=== PATIENT | female | born 1930 | race Caucasian/White ===

== ENCOUNTER 2016-07-04 12:03 | Emergency (ER) | payer MEDICARE, BC ==
[2016-07-04 12:51] LABS: BASOPHILS 0.4 % (0.0-2.0); EOSINOPHILS 2.6 % (0-7); HEMATOCRIT 42.4 % (36.0-48.0); HEMOGLOBIN 14.4 g/dL (12-16); IMMATURE GRANULOCYTES 0.2 % (0-5); LYMPHOCYTES 35.5 % (15-50); MCH 31.9 pg (26.0-34.0); MEAN PLATELET VOLUME 10.2 fL (7.4-10.4); MONOCYTES 7.5 % (2-11); NEUTROPHILS 53.8 % (40-80); PLATELET COUNT 208 10x3/uL (130-400); RBC 4.51 10x6/uL (4.00-5.40); RDW 13.2 % (11.5-14.5)
[2016-07-04 13:09] LABS: ALBUMIN 3.5 g/dL (3.4-5.0); ALKALINE PHOSPHATASE 68 U/L (46-116); ALT (SGPT) 22 U/L (10-68); CALC OSMOLALITY 277 mosm/kg (275-300); CALCIUM 9.4 mg/dL (8.5-10.1); CARBON DIOXIDE 26.5 mmol/L (21.0-32.0); CHLORIDE - SERUM 105 mmol/L (98-107); CREATININE - SERUM 0.7 mg/dL (0.6-1.3); GLUCOSE 96 mg/dL (74-106); PROTEIN - SERUM 7.1 g/dL (6.4-8.2); SODIUM 140 mmol/L (136-145); UREA NITROGEN 10 mg/dL (7-18); eGFR NON AFRICAN AMERICAN 84 mL/min (90-120)
[2016-07-04 13:46] LABS: CKMB 1.1 U/L (0.0-3.6); CREATINE KINASE 50 UL (21-215); PRO BNP 140 pg/mL (0-450); TROPONIN-I < 0.017 ng/mL (0.000-0.060)
[2016-07-05] MEDS ORDERED: ASCORBIC ACID500 MG PO (12:47)
[2016-07-05] MEDS ORDERED: VITAMIN D2000 UNIT PO (12:47)
[2016-07-05] MEDS ORDERED: LUTEIN20 MG PO (12:48)
[2016-07-05] MEDS ORDERED: BAYER CHEWABLE81 MG PO (12:49)
[2016-07-05 12:50] VITALS: BMI 25.4
[2016-07-05] MEDS ORDERED: PLAVIX75 MG PO (15:34)
--- NOTE | 2016-07-07 08:22 | HP ---
PATIENT: TEETEE WILLIAMSON MEDICAL RECORD: [id number] ACCOUNT: [id number] LOCATION:[place] : 32 ADMISSION DATE: 07/04/16 HISTORY AND PHYSICAL EXAMINATION HISTORY OF PRESENT ILLNESS: An 86-year-old lady with no known history of coronary artery disease. She has a history of vertigo with near syncope, evaluated with 30-day event Holter monitor, admitted today with anginal symptomatology with exercising at [facility] with onset of chest pain, tightness, pressure, plus or minus nausea, no emesis, referred for further evaluation. PAST MEDICAL HISTORY: Include history of osteoarthritis. No other major illnesses. MEDICATIONS: Per Pulse 8. ALLERGIES: None known. SOCIAL HISTORY: Lives here in [place]. She independently takes care of all ADLs. She is a nonsmoker, does exercise. REVIEW OF SYSTEMS: The patient reports easy bruising but reports no swollen glands. The patient reports no fever, no night sweats, no significant weight gain, no significant weight loss. No significant exercise tolerance. The patient reports no dry eyes, no irritation, no vision change. Patient reports no difficulty hearing and no ear pain. Patient reports no frequent nose bleeds or nose and sinus problems. Patient reports on arm pain on exertion. No shortness of breath while lying down. No history of heart murmur. Patient reports no cough, no wheezing or coughing up blood. Patient reports no abdominal pain, no vomiting. Normal appetite. No diarrhea and not vomiting blood. No nausea and no constipation. Patient reports no incontinence. No difficulty urinating. No hematuria. No increased frequency. Patient reports no muscle aches. No weakness, no arthralgias, no back pain. No swelling of the extremities. Patient reports no abnormal mole, no jaundice, no rashes. Reports no loss of consciousness. No weakness and no numbness. No seizures, dizziness, or headaches. The patient reports no depression, no sleep disturbance, feeling safe in a relationship and no alcohol abuse. Patient reports on fatigue. Reports no runny nose or sinus pressure. No itching, no hives, and no frequent sneezing. PHYSICAL EXAMINATION: GENERAL: Pleasant female, in no acute distress. VITAL SIGNS: Blood pressure 116/64, pulse 64 and regular. HEENT: Normocephalic, atraumatic. NECK: No JVD or bruit. HEART: Regular, occasional extrasystole. No gallops. LUNGS: Good air excursion. ABDOMEN: Soft, nontender. EXTREMITIES: Pulse well preserved 2+ with no edema. DIAGNOSTIC DATA: ECG shows normal PACs. IMPRESSION: Probable progressive angina. HISTORY AND PHYSICAL [id number] TEETEE WILLIAMSON PLAN: We will plan for cardiac catheterization. Cardiac enzymes are negative currently. The patient lives close by so we will discharge with this done at a later date. TRANSINT:[id number] Voice Confirmation ID: [id number] DOCUMENT ID: [id number] JOSLYN MACK MD at 0822 CC: [id number] DICTATION DATE: 07/04/16 1448 ALLEY CLEANER: 07/04/16 1623 DEP ER 07/04/16 [place] [address] [place] [address]
== END 2016-07-04 15:55 | disposition home or self-care (01) ==
LOC: D.ER 12:03
PROVIDERS: Emergency Medicine
DX: R07.9 Chest pain, unspecified (principal); G25.81 Restless legs syndrome; I44.0 Atrioventricular block, first degree

== ENCOUNTER 2016-07-05 12:04 | Outpatient (CLI) | payer MEDICARE, BC ==
[~2016-07-05] VITALS: Ht 167.6 cm; Wt 71.4 kg
--- NOTE | ~2016-07-05 | HEMODYNAMI ---
PATIENT:TEETEE WILLIAMSON MEDICAL RECORD: [id number] : 32 LOCATION:DSINTIA ADMISSION DATE: 07/05/16 Generatedon:07/05/201615:23 Patient name: TEETEE WILLIAMSON Patient #: [id number] SSN: DO B: 1930 Date of study: 07/05/2016 Page: Of Hemodynamic Procedure Report Patient Data Patient Demographics Procedure consent was obtained First Name: TEETEE Gender: Female Last Name: TERI : 1930 [facility] Initial: R Age: 86 year(s) Patient #: [id number] Race: Unknown Additional ID: [id number] Contact details Address: [address] [place] [address] [facility] State: [place] City: [facility] Zip code: [address] Admission Admission Data Admission Date: 07/05/2016 Admission Time: 12:04 Procedure Procedure Types Cath Procedure Diagnostic Procedure LHC LHC w/Coronaries PCI Procedure Coronary Stent Initial Miscellaneous Procedures Moderate Sedation up to 30 minutes Procedure Description Procedure Date Procedure Date: 07/05/2016 Procedure Start Time: 14:53 Procedure End Time: 15:21 Procedure Staff Name Function Steve Rivero RT Monitor Umair Sanchez RT Scrub Bola Mckinney MD Performing Physician Oneyda Zavala RN Nurse Mary Buchanan RT Monitor Procedure Data Cath Procedure Fluoroscopy Diagnostic fluoroscopy Total fluoroscopy Time: 4.7 time: 4.7 min min Diagnostic fluoroscopy Total fluoroscopy dose: 625 dose: 625 mGy mGy Contrast Material Contrast Material Type Amount (ml) Isovue 300 105 Entry Location Entry Primary Successful Side Size Upsize Upsize Entry Closure Olmos ccessful Closure Location (Fr) 1 (Fr) 2 (Fr) Remarks Device Remarks Radial Right 6 Fr Mechanical artery Short Compression Estimated blood loss: 10 ml Diagnostic catheters Device Type Used For End Catheter Placement Terumo 5Fr [place] 110cm LV Angiography catheter Terumo 5Fr [place] 110cm Left Coronary catheter Angiography Terumo 5Fr [place] 110cm Right Coronary catheter Angiography Procedure Complications No complications Procedure Medications Medication Administration Route Dosage Oxygen NC 2 l/min Heparin Flush Bag added to field 2 bags (1000units/500ml NS) Lidocaine 2% added to field 20 Radial Cocktail added to field 1 syringe (Verapomil 2mg/Nitro 400mcg/Heparin 1500units) Versed I.V. 0.5 mg Fentanyl I.V. 50 mcg Versed I.V. 0.5 mg Fentanyl I.V. 50 mcg Versed I.V. 0.5 mg Radial Cocktail I.A. 1 syringe (Verapomil 2mg/Nitro 400mcg/Heparin 1500units) Heparin Bolus I.V. 4000 units Integrilin (Bolus I.V. 6.2 ml 2mg/ml) Plavix P.O. 600 mg Hemodynamics Rest Heart Rate: 74 (bpm) Pressure Samples Time Site Value (mmHg) Purpose Heart Use Rate(bpm) 14:56 LV 85/7,85 EDP 72 Gradients Valve Time Site Site Mean SEP/DFP Peak To Heart Use 1 2 (mmHg) (sec/min) Peak Rate (mmHg) (bpm) Aortic 14:57 LV AO 80 Snapshots Pre Cath Intra NCS Post Cath Vital Signs Time Heart Resp SPO2 NIBP (mmHg) Rhythm Pain Sedation Rate (ipm) (%) Status Level (bpm) 14:43:57 72 16 98 152/95(121) NSR 0 (11) 10(A) , No pain 14:48:01 64 16 97 127/68(109) NSR 0 (11) 10(A) , No pain 14:52:11 67 16 96 121/71(113) NSR 0 (11) 10(A) , No pain 14:56:27 88 16 98 103/45(72) NSR 0 (11) 9(A) , No pain 15:00:37 66 16 96 104/42(73) NSR 0 (11) 9(A) , No pain 15:04:43 76 16 96 96/54(79) NSR 0 (11) 9(A) , No pain 15:09:31 76 16 95 119/71(99) NSR 0 (11) 10(A) , No pain 15:13:42 68 16 94 111/62(99) NSR 0 (11) 10(A) , No pain 15:17:51 64 16 94 109/55(77) NSR 0 (11) 10(A) , No pain Medications Time Medication Route Dose Verified Delivered Reason Note s Effectiveness by by 14:44:22 Oxygen NC 2 l/min Bola Oneyda Per physician St. Randy Zavala RN, MD 14:44:30 Heparin Flush added 2 bags Bola Bola used for Bag to [place] procedure (1000units/500ml field MD ZAVALA NS) 14:44:37 Lidocaine 2% added 20ml Bola Aranaory used for to vial [place] procedure field MD ZAVALA 14:44:55 Radial Cocktail added 1 Bola Bola used for (Verapomil to syringe [place] procedure 2mg/Nitro field MD ZAVALA 400mcg/Hepari 14:51:20 Versed I.V. 0.5 mg Bola Oneyda for sedation St. Randy Zavala RN, MD 14:51:28 Fentanyl I.V. 50 mcg Bola Oneyda for sedation St. Randy Zavala RN, MD 14:53:40 Versed I.V. 0.5 mg Bola Oneyda for sedation St. Randy Zavala RN, MD 14:53:44 Fentanyl I.V. 50 mcg Bola Oneyda for sedation St. Randy Zavala RN, MD 14:55:17 Versed I.V. 0.5 mg Bola Oneyda for sedation St. Randy Zavala RN, MD 14:55:23 Radial Cocktail I.A. 1 Bola Bola for (Verapomil syringe [place] vasodilation 2mg/Nitro MD ZAVALA 400mcg/Hepari 15:01:51 Heparin Bolus I.V. 4000 Bola Oneyda for dose units St. Randy Zavala RN anticoagulation verified MD sandra horne 15:04:11 Integrilin I.V. 6.2 ml Bola Oneyda for 3.8 ML (Bolus 2mg/ml) St. Randy Zavala RN antiplatelet wasted MD therapy 15:11:54 Plavix P.O. 600 mg Bola Oneyda for St. Randy Zavala RN antiplatelet MD therapy Procedure Log Time Note 14:15:30 Umair Sanchez RT(R) sent for patient. Start room use. 14:29:31 Time tracking: Regular hours 14:29:36 Plan of Care:Hemodynamics will remain stable., Cardiac rhythm will remain stable., Comfort level will be maintained., Respiratory function will remain adequate., Patient/ family verbilizes understanding of procedure., Procedure tolerated without complication., Recovers from procedure without complications.. 14:32:49 Patient received from Pre/Post Procedure Room to CCL 2 Alert and oriented. Tansferred to table in Supine position. 14:32:50 Correct patient and procedure confirmed by team. 14:32:50 Warm blankets applied, and blair hugger turned on for patient comfort. 14:32:51 Signed procedure consent form obtained from patient. 14:32:52 ECG and BP/O2 sat monitors applied to patient. 14:42:55 Vital chart was started 14:44:22 Oxygen 2 l/min NC was administered by Oneyda Zavala RN; Per physician; 14:44:30 Heparin Flush Bag (1000units/500ml NS) 2 bags added to field was administered by Bola Mckinney MD; used for procedure; 14:44:37 Lidocaine 2% 20ml vial added to field was administered by Bola Mckinney MD; used for procedure; 14:44:55 Radial Cocktail (Verapomil 2mg/Nitro 400mcg/Heparin 1500units) 1 syringe added to field was administered by Bola Mckinney MD; used for procedure; 14:48:33 Rhythm: sinus rhythm 14:48:35 Full Disclosure recording started 14:49:01 H&P Date Dictated: 07/04/2016 Within 30 days and on chart., H&P Addendum completed by physician on day of procedure. (MUST COMPLETE FOR ALL OUTPATIENTS). 14:49:02 Pre-op teaching completed and patient verbalized understanding. 14:49:02 Pre-procedure instructions explained to patient. 14:49:04 Family in waiting room. 14:49:06 Patient NPO since Midnight. 14:49:08 Is the patient allergic to Iodine/contrast media? No. 14:49:14 Is patient on blood thinner?No 14:49:17 Patient diabetic? No. 14:49:19 Patient not . Patient is over age 55. 14:49:21 Previous problem with sedation/anesthesia? No ? 14:49:23 Snore? No 14:49:24 Sleep apnea? No 14:49:26 Opens mouth fully? Yes 14:49:26 Deviated septum? No 14:49:27 Sticks out tongue? Yes 14:49:29 Airway obstruction? No ? 14:49:30 Dentures? No ? 14:49:34 Pre procedure: right dorsailis pedis pulse 1+ Palpable, but thready & weak; easily obliterated 14:49:39 Modified Chris's test Ulnar < 7 seconds 14:49:42 Patient pain scale 0/10 ?. 14:49:48 IV patent on arrival in left forearm with 0.9% NaCl at [facility]. 14:49:50 Lab results completed and on chart. 14:49:52 Right Radial & Right Groin area was prepped with chlora-prep and draped in sterile fashion 14:49:54 Sharps counted by scrub and verified by R.N. 14:49:54 Alarms reviewed by R. N. 14:49:58 Use device set Radial Dx 14:49:59 Tegaderm 4 x 4 opened to sterile field. 14:50:00 Acist Manifold opened to sterile field. 14:50:01 Acist Hand Control opened to sterile field. 14:50:02 Medline Cath Pack opened to sterile field. 14:50:02 Acist Syringe opened to sterile field. 14:50:03 St [place]alo 260cm J .035 wire opened to sterile field. 14:50:03 Terumo 6Fr Slender Glidesheath opened to sterile field. 14:50:03 Bag Decanter opened to sterile field. 14:50:04 MBrace Wrist Support opened to sterile field. 14:50:08 --------ALL STOP TIME OUT------ 14:50:09 Final Timeout: patient, procedure, and site verified with staff and physician. All members of the team are in agreement. 14:50:13 Right Radial & Right Groin site verified by team. 14:50:15 Physical assessment completed. ASA score P 2 - A patient with mild systemic disease as per Bola Mckinney MD. 14:50:18 Sedation plan: IV Moderate Sedation Versed, Fentanyl 14:51:20 Versed 0.5 mg I.V. was administered by Oneyda Zavala RN; for sedation; 14:51:28 Fentanyl 50 mcg I.V. was administered by Oneyda Zavala RN; for sedation; 14:52:38 Steve Rivero RT(R) was relieved by Mary Buchanan RT(R) as monitoring person 14:52:50 Procedure started. 14:52:53 Baseline sample Acquired. 14:53:13 Local anesthetic to right radial artery with Lidocaine 2% by Bola Mckinney MD.INITIAL ACCESS ONLY 14:53:40 Versed 0.5 mg I.V. was administered by Oneyda Zavala RN; for sedation; 14:53:44 Fentanyl 50 mcg I.V. was administered by Oneyda Zavala RN; for sedation; 14:54:15 A 6 Fr Short sheath was inserted into the Right Radial artery 14:54:31 Zero performed for pressure channel P1 14:55:14 A Terumo 5Fr [place] 110cm catheter was advanced over the wire and used for LV Angiography. 14:55:17 Versed 0.5 mg I.V. was administered by Oneyda Zavala RN; for sedation; 14:55:23 Radial Cocktail (Verapomil 2mg/Nitro 400mcg/Heparin 1500units) 1 syringe I.A. was administered by Bola Mckinney MD; for vasodilation; 14:56:00 Injector settings: Ml/sec: 5, Volume: 15, 14:56:02 LV gram done using SHANNON 14:56:03 LV hemodynamics recorded. 14:56:48 EF : 60 % 14:57:39 A Terumo 5Fr [place] 110cm catheter was advanced over the wire and used for Left Coronary Angiography. 14:59:15 A Terumo 5Fr [place] 110cm catheter was advanced over the wire and used for Right Coronary Angiography. 14:59:21 Catheter removed. 14:59:32 [employer] BasixCompak Inflation Kit opened to sterile field. 14:59:33 Alloy Digitaltronic Launcher 6Fr HS I SH guide catheter opened to sterile field. 14:59:39 Lorenz [place] 300cm 0.014 guide wire opened to sterile field. 15:01:21 6 Fr HSI SH guide catheter was inserted over the wire 15:01:51 Heparin Bolus 4000 units I.V. was administered by Oneyda Zavala RN; for anticoagulation; dose verified wtgeovany horne 15:03:02 [place] wire advanced. 15:04:11 Integrilin (Bolus 2mg/ml) 6.2 ml I.V. was administered by Oneyda Zavala RN; for antiplatelet therapy; 3.8 ML wasted 15:04:56 Inflation Number: 1 A Medtronic Integrity 2.5 x 14 stent was prepped and advanced across the Mid RCA. The stent was deployed at 12 AMRIT for 0:31 (min:sec). 15:05:09 Stent catheter was removed intact over wire. 15:08:35 Inflation Number: 1 A Medtronic Integrity 2.5 x 14 stent was prepped and advanced across the Prox RCA. The stent was deployed at 14 AMRIT for 0:35 (min:sec). 15:08:51 Stent catheter was removed intact over wire. 15:09:05 Balloon removed over the wire. 15:09:06 Guide catheter removed. 15:09:06 Wire removed. 15:09:16 Terumo TR Band Standard opened to sterile field. 15:09:29 Sheath removed intact; hemostasis achieved with Mechanical Compression to the Right Radial artery. 15:09:32 Procedure ended.(Physican Out) 15:09:47 Fluoroscopy time 04.70 minutes. 15:09:50 Fluoroscopy dose: 625 mGy 15:09:50 Flurop Dose total: 625 15:09:54 Contrast amount:Isovue 300 105ml. 15:09:55 Sharps counted by scrub and verified by R.N. 15:09:57 TR band inflated with 12cc of air. 15:09:58 Insertion/operative site no bleeding no hematoma. 15:10:38 Post right radial artery:stable, clean and dry 15:10:40 Post Procedure Pulses reassessed and unchanged 15:10:53 Post-procedure physical assessment completed. ASA score P 2 - A patient with mild systemic disease as per Bola Mckinney MD. 15:10:55 Post procedure rhythm: unchanged. 15:10:59 Estimated blood loss: 10 ml 15:11:01 Post procedure instruction explained to patient.Patient verbalizes understanding. 15:11:02 Patient needs reinforcement of post procedure teaching. 15:11:28 Procedure type changed to Cath procedure, Diagnostic procedure, LHC, LHC w/Coronaries, PCI procedure, Coronary Stent Initial, Miscellaneous Procedures, Moderate Sedation up to 30 minutes 15:11:43 Procedure Complication : No complications 15:11:46 See physician's report for complete and final results. 15:11:54 Plavix 600 mg P.O. was administered by Oneyda Zavala RN; for antiplatelet therapy; 15:14:01 Procedure and supply charges have been captured, reviewed, submitted and are correct. 15:20:33 Vital chart was stopped 15:20:44 Report given to Pre/Post Procedure Room. 15:20:47 Patient transfered to Pre/Post Procedure Room with Stretcher. 15:21:11 Full Disclosure recording stopped 15:21:11 Procedure ended. 15:21:18 End room use (Document Last) Intervention Summary Intervention Notes Time ActionType Lesion and Equipment Action# Pressure Duration Attributes Used 15:04:56 Place stent Mid RCA Medtronic 1 12 00:31 Integrity 2.5 x 14 stent 15:08:35 Place stent Prox RCA Medtronic 1 14 00:36 Integrity 2.5 x 14 stent Device Usage Item Name Manufacture Quantity Catalog Hospital Part Current Minimal Lot# / Number Charge Number Stock Stock Serial# Code Tegade 4 3M 1 [id number] [id number] 501140 5 x 4 Acist Acist 1 08252 045289 912802 141228 5 Manifold Medical Systems Inc Acist Hand Acist 1 48516 081366 812738 418445 5 Control Medical Systems Inc Acist Acist 1 16926 625152 206435 040766 20 Syringe Medical Systems Inc Medline Cardinal 1 [id number] 134115 69864 913853 5 Cath Pack Health Bag Microtek 1 2002S 899131 43628 714520 5 [employer] Inc. Terumo 6Fr Terumo 1 [id number] 353837 134056 505897 [address] St Gonzalo 1 559364 272461 930211 256367 30 260cm J .035 wire MBrace Advanced 1 140-0250-00 702896 89128 559985 5 Wrist Vascular Support Dynamics Terumo 5Fr Terumo 1 36-9710 453594 026540 698274 5 [place] 110cm catheter Merit Merit 1 CX7566 513496 037827 120648 15 BasixNatureWorks Medical Inflation Kit Medtronic Medtronic 1 [id number] 084863 00502 970052 1 Launcher 6Fr HS I SH guide catheter Lorenz vivit 1 [id number] 719483 854443 281803 1 [place] [facility] 300cm 0.014 guide wire Medtronic Medtronic 2 [id number] 410836 133941 5 [id number] [facility] [id number] 2.5 x 14 stent Terumo TR Terumo 1 [id number] 924848 377352 930883 40 Band Standard Signature Audit [place] Stage Time Signature Unsigned Intra-Procedure 07/05/2016 Mary 3:23:14 PM Counts RT(R) Signatures Monitor : Steve Rivero RT Signature : Date : Time : Monitor : Mary Signature : Counts RT Date : Time : [address] [place] [address]
[2016-07-05] MEDS ORDERED: VITAMIN D2000 UNIT PO (12:47)
[2016-07-05] MEDS ORDERED: ASCORBIC ACID500 MG PO (12:47)
[2016-07-05] MEDS ORDERED: LUTEIN20 MG PO (12:48)
[2016-07-05] MEDS ORDERED: BAYER CHEWABLE81 MG PO (12:49)
[2016-07-05 12:50] VITALS: BP 152/61; Ht 167.6 cm; Wt 71.4 kg
[2016-07-05 13:05] LABS: BASOPHILS 0.7 % (0.0-2.0); EOSINOPHILS 3.4 % (0-7); HEMATOCRIT 40.3 % (36.0-48.0); HEMOGLOBIN 13.5 g/dL (12-16); LYMPHOCYTES 39.4 % (15-50); MCH 31.7 pg (26.0-34.0); MCHC 33.5 g/dL (31.0-37.0); MCV 94.6 fL (80.0-100.0); MEAN PLATELET VOLUME 10.3 fL (7.4-10.4); MONOCYTES 10.5 % (2-11); PLATELET COUNT 207 10x3/uL (130-400); RBC 4.26 10x6/uL (4.00-5.40); RDW 13.1 % (11.5-14.5); WBC 4.4 10x3/uL (4.8-10.8)
[2016-07-05 13:20] LABS: CREATININE - SERUM 0.8 mg/dL (0.6-1.3)
[2016-07-05] MEDS ORDERED: PLAVIX75 MG PO (15:34)
--- NOTE | 2016-07-05 15:48 | NUR ---
RESTING QUIETLY WITH VSS TR BAND TO R/WRIST CDI NO BLEEDING NO HEMATOMA NOTED. WILL MONITOR
--- NOTE | 2016-07-05 16:18 | NUR ---
9475 NO DISTRESS VSS WITH PATIENT RESTING QUIELTY WITH EYES CLOSED. TR BAND TO R/WRIST CDI NO BLEEDING NO HEMATOMA NOTED
--- NOTE | 2016-07-05 16:29 | NUR ---
BED DE LA TORRE PROVIDED WITH PATIENT VOIDING 300 CC CLEAR YELLOW URINE
--- NOTE | 2016-07-05 17:47 | NUR ---
3 CC AIR REMOVED FROM TR BAND WITH NO BLEEDING NOTED
--- NOTE | 2016-07-05 18:17 | NUR ---
PIV REMOVED FROM LEFT HAND WITH DRESSING APPLIED. PATIENT UP TO AMBULATE TO BATHROOM NO DISTRESS NO CHEST PAIN BACK TO ROOM WITH 2 CC AIR REMOVED FROM TR BAND NO BLEEDING NOTED
--- NOTE | 2016-07-05 18:38 | NUR ---
TR BAND WITH NO BLEEDING NO HEMATOMA NOTED VERBAL AND WRITTEN DISCHARGE GONE OVER WITH PATIENT AND FAMILY LEFT VIA WC TO PARKING FOR TRANSPORT HOME
--- NOTE | 2016-07-07 08:22 | OP ---
PATIENT NAME: TEETEE WILLIAMSON MEDICAL RECORD: [id number] :32 LOCATION:D.CAT ADMISSION DATE: SURGEON: JOSLYN MACK MD DATE OF OPERATION: 07/05/2016 PROCEDURE: Left heart catheterization, selective coronary angiography, right radial approach. CATHETERS: [place] catheter, radial sheath. The procedure was well tolerated. We proceeded immediately to PTCA stenting in the right. FINDINGS: Left ventriculography in 30-degree SHANNON view: Normal wall motion and normal systolic function. CORONARY ANATOMY: LEFT MAIN: The left main is free of disease. LAD: Has minimal luminal irregularities, otherwise no flow obstructive disease. CIRCUMFLEX: Circumflex has minimal luminal irregularities, no flow obstructive disease. RIGHT CORONARY ARTERY: Has 2 sequential stenoses, mid portion 78%, but more proximal, 80%. PLAN: Intervention momentarily. DESCRIPTION: Using an indwelling sheath, a hockey stick guide catheter was applied with excellent guide catheter support followed by a 300 cm [place] XT wire was placed across both lesions in the right. Stents were placed in the following fashion: midportion was covered with a 2.5 x 14 mm Integrity stent up to 12 atmospheres, more proximally 80% stenosis up to 2.5 x 14 mm Integrity nondrug-eluting stent to 14 atmospheres. Final ____ shows excellent resolution, no significant residual. GINA flow was 3 throughout the procedure. Integrilin was used in the case. Plavix was loaded in the lab. Sheath was closed with TR band. TRANSINT:[id number] Voice Confirmation ID: [id number] DOCUMENT ID: [id number] JOSLYN MACK MD at 0822 CC: [id number] DICTATION DATE: 07/05/16 1516 CYTOMETRY TECHNOLOGIST: 07/05/16 2326 DEP CLI 07/05/16 [place] [address]
== END 2016-07-05 18:40 | disposition home or self-care (01) ==
LOC: D.CATH 12:04
PROVIDERS: Internal Medicine Interventional Cardiology
DX: I20.9 Angina pectoris, unspecified (principal); R55 Syncope and collapse

== ENCOUNTER → 2017-11-07 10:40 | Outpatient (CLI) | payer MEDICARE, BC ==
[2016-07-05 12:50] VITALS: BMI 25.4
[~2017-11-07 10:40] MED LIST: ASCORBIC ACID500 MG PO; BAYER CHEWABLE81 MG PO; LUTEIN20 MG PO; PLAVIX75 MG PO; VITAMIN D2000 UNIT PO
== END | disposition home or self-care (01) ==
LOC: D.RAD 10:40
DX: R06.02 Shortness of breath (principal)

== ENCOUNTER 2019-01-11 09:07 | Observation (INO) | payer MEDICARE, BC ==
[~2019-01-11] VITALS: Ht 167.6 cm; Wt 59.9 kg
--- NOTE | ~2019-01-11 | HEMODYNAMI ---
PATIENT:TEETEE WILLIAMSON MEDICAL RECORD: [id number] : 32 LOCATION:[address] ADMISSION DATE: 01/11/19 Generatedon:01/12/201912:08 Patient name: TEETEE WILLIAMSON Patient #: [id number] SSN: DO B: 1930 Date of study: 01/12/2019 Page: Of Hemodynamic Procedure Report Patient Data Patient Demographics Procedure consent was obtained First Name: TEETEE Gender: Female Last Name: TERI : 1930 [facility] Initial: R Age: 88 year(s) Patient #: [id number] Race: Additional ID: [id number] Contact details Address: [address] [place] [address] State: [place] City: [facility] Zip code: [address] Past Medical History Allergies Allergen Reaction Date Comments Reported Sulfa drugs 01/12/2019 Admission Admission Data Admission Date: 01/11/2019 Admission Time: 10:18 Room #: [facility] Lab Results Lab Result Date: 01/12/2019 Lab Result Time: 0:00 Biochemistry Name Units Result Min Max BUN mg/dl 13 --(--*-)-- 7 18 Creatinine mg/dl 0.8 --(-*--)-- 0.6 1.3 eGFR ml/min 72 *-(----)-- 90 120 NONAFRICAN CBC Name Units Result Min Max Hematocrit % 41.3 -*(----)-- 42 54 Hemoglobin g/dl 14 --(*---)-- 13.5 17.5 Procedure Procedure Types Cath Procedure Diagnostic Procedure C [facility] w/Coronaries Procedure Description Procedure Date Procedure Date: 01/12/2019 Procedure Start Time: 11:56 Procedure End Time: 12:06 Procedure Staff Name Function Bola House MD Performing Physician Evita Rossi RT Monitor Anabella Hopson RT Scrub Erasmo Blunt RN Nurse Steve Rivero RT Latin Dancer Procedure Data Cath Procedure Fluoroscopy Diagnostic fluoroscopy Total fluoroscopy Time: 1.7 time: 1.7 min min Diagnostic fluoroscopy Total fluoroscopy dose: 167 dose: 167 mGy mGy Contrast Material Contrast Material Type Amount (ml) Isovue 300 55 Entry Location Entry Primary Successful Side Size Upsize Upsize Entry Closure Succes sful Closure Location (Fr) 1 (Fr) 2 (Fr) Remarks Device Remarks Femoral Right 5 Fr Exoseal artery Estimated blood loss: 0 ml Diagnostic catheters Device Type Used For End Catheter Placement MULTIPACK JL 4.0 5Fr Procedure catheter MULTIPACK 3DRC 5Fr Procedure catheter MULTIPACK Pigtail 5 Fr Procedure catheter Procedure Complications No complications Procedure Medications Medication Administration Route Dosage Oxygen etCO2 Nasal cannula 2 l/min Lidocaine 2% added to field 20 Heparin Flush Bag added to field 2 bags (1000units/500ml NS) 0.9% NaCl I.V. 100 ml/hr Versed I.V. 1 mg Versed I.V. 1 mg Fentanyl I.V. 50 mcg Fentanyl I.V. 50 mcg Hemodynamics Rest HGB: 14 (g/dl) Heart Rate: 60 (bpm) Pressure Samples Time Site Value (mmHg) Purpose Heart Use Rate(bpm) 12:01 LV 113/3,9 Snapshot 64 Gradients Valve Time Site Site Mean SEP/DFP Peak To Heart Use 1 2 (mmHg) (sec/min) Peak Rate (mmHg) (bpm) Aortic 12:01 LV AO 65 Snapshots Pre Cath Intra NCS Post Cath Vital Signs Time Heart Resp SPO2 etCO2 NIBP Rhythm Pain Sedation Rate (ipm) (%) (mmHg) (mmHg) Status Level (bpm) 11:48:42 62 13 97 40.5 123/58(73) NSR 0 (11) 10(A) , No pain 11:53:00 58 13 94 44.2 101/53(70) NSR 0 (11) 10(A) , No pain 11:57:08 60 12 93 45 104/56(82) NSR 0 (11) 9(A) , No pain 12:01:19 66 12 96 31.5 107/51(86) NSR 0 (11) 9(A) , No pain 12:04:59 65 13 96 32.3 108/58(83) NSR 0 (11) 10(A) , No pain Medications Time Medication Route Dose Verified Delivered Reason Notes Eff ectiveness by by 11:48:47 Oxygen etCO2 2 Bola Kennyie used for Nasal l/min St Randy Blunt chef kitchen manager cannula 11:48:57 Lidocaine 2% added 20ml Bola Bola for local to vial [facility] anesthetic field MD ZAVALA 11:49:04 Heparin Flush added 2 Bola Bola used for Bag to bags [facility] procedure (1000units/500ml field MD ZAVALA NS) 11:49:12 0.9% NaCl I.V. 100 Bola Kennyie Per ml/hr St Randy Blunt RN physician 11:55:01 Versed I.V. 1 mg Bola Buffie for HarshRandy Blunt RN sedation 11:55:08 Fentanyl I.V. 50 Bola Buffie for mcg HarshRandy Blunt RN sedation 11:59:02 Versed I.V. 1 mg Bola Buffie for HarshRandy Blunt RN sedation 11:59:08 Fentanyl I.V. 50 Bola Buffie for mcg Harsh Merlene RN sedation MD Procedure Log Time Note 11:23:18 Informed consent obtained and on chart 11:23:43 Procedure Status Urgent Heart Cath (IP). 11:23:46 Steve Rivero RT(R) sent for patient. Start room use. 11:23:47 Time tracking: Call back (After hours or weekends) 11:23:51 Plan of Care:Hemodynamics will remain stable., Cardiac rhythm will remain stable., Comfort level will be maintained., Respiratory function will remain adequate., Patient/ family verbilizes understanding of procedure., Procedure tolerated without complication., Recovers from procedure without complications.. 11:34:04 Patient received from Pre/Post Procedure Room to CCL 1 Alert and oriented. Tansferred to table in Supine position. 11:34:05 Warm blankets applied, and blair hugger turned on for patient comfort. 11:34:06 Correct patient and procedure confirmed by team. 11:34:07 ECG and BP/O2 sat monitors applied to patient. 11:34:11 H&P Date Dictated: 01/12/2019 Within 30 days and on chart.. 11:34:22 Patient allergic to Sulfa drugs 11:47:32 Baseline sample Acquired. 11:47:32 Vital chart was started 11:47:35 Rhythm: sinus bradycardia 11:47:37 Full Disclosure recording started 11:47:39 Pre-procedure instructions explained to patient. 11:47:39 Pre-op teaching completed and patient verbalized understanding. 11:47:40 Family in patients room. 11:47:42 Patient NPO since Midnight. 11:47:44 Is patient on blood thinner?No 11:47:46 Patient diabetic? No. 11:47:48 Patient not . Patient is over age 55. 11:47:50 Previous problem with sedation/anesthesia? No ? 11:47:53 Snore? No 11:47:54 Sleep apnea? No 11:47:55 Deviated septum? No 11:47:55 Opens mouth fully? Yes 11:47:56 Sticks out tongue? Yes 11:47:58 Airway obstruction? No ? 11:48:00 Dentures? No ? 11:48:04 Pre procedure: right dorsailis pedis pulse 1+ Palpable, but thready & weak; easily obliterated 11:48:06 Patient pain scale 0/10 ?. 11:48:12 IV patent on arrival in right wrist with 0.9% NaCl at [facility]. 11:48:45 Lab Result : BUN 13 mg/dl 11:48:45 Lab Result : Creatinine 0.8 mg/dl 11:48:45 Lab Result : eGFR NONAFRICAN 72 ml/min 11:48:45 Lab Result : Hemoglobin 14 g/dl 11:48:45 Lab Result : Hematocrit 41.3 % 11:48:47 Oxygen 2 l/min etCO2 Nasal cannula was administered by Erasmo Blunt RN; used for procedure; Verbal order read back and verified. 11:48:48 Lab results completed and on chart. 11:48:56 Right groin area was prepped with chlora-prep and draped in sterile fashion 11:48:57 Lidocaine 2% 20ml vial added to field was administered by Bola House MD; for local anesthetic; Verbal order read back and verified. 11:48:57 Alarms reviewed by R. N. 11:48:57 Sharps counted by scrub and verified by R.N. 11:49:04 Heparin Flush Bag (1000units/500ml NS) 2 bags added to field was administered by Bola House MD; used for procedure; Verbal order read back and verified. 11:49:12 0.9% NaCl 100 ml/hr I.V. was administered by Erasmo Blunt RN; Per physician; Verbal order read back and verified. 11:52:34 Risk of Mortality: .5 11:52:42 Risk of blood transfusion: .8 11:52:56 Risk of GABRIEL: 2 11:54:29 --------ALL STOP TIME OUT------ 11:54:30 Final Timeout: patient, procedure, and site verified with staff and physician. All members of the team are in agreement. 11:54:33 Right groin site verified by team. 11:54:37 Fire Safety Assessment: A--An alcohol-based skin anteseptic being used preoperatively., C--Open oxygen or nitrous oxide is being used., D--An ESU, laser, or fiber-optic light is being used. 11:54:56 Physical assessment completed. ASA score P 2 - A patient with mild systemic disease as per Bola House MD. 11:54:59 2) 60-89 Mildly reduced kidney function, and other findings (as for stage 1) point to kidney disease. 11:55:01 Versed 1 mg I.V. was administered by Erasmo Blunt RN; for sedation; Verbal order read back and verified. 11:55:02 Maximum allowable contrast dose (3.7 X eGFR X 0.75)200 ml. 11:55:05 Sedation plan: IV Moderate Sedation Medication:Versed, Fentanyl 11:55:08 Fentanyl 50 mcg I.V. was administered by Erasmo Blunt RN; for sedation; Verbal order read back and verified. 11:55:19 Zero performed for pressure channel P1 11:56:02 Procedure started. 11:56:09 Local anesthetic to right femoral artery with Lidocaine 2% by Bola House MD.INITIAL ACCESS ONLY 11:57:03 Use device set Femoral Dx 11:57:04 ACIST Syringe (60553) opened to sterile field. 11:57:05 Bag Decanter (2002) opened to sterile field. 11:57:06 ACIST Hand Control (17783) opened to sterile field. 11:57:06 ACIST Manifold (30375) opened to sterile field. 11:57:07 Tegaderm 4 x 4 (1626W) opened to sterile field. 11:57:08 Medline Cath Pack ([id number]) opened to sterile field. 11:57:09 DIAGNOSTIC Multipack 5Fr catheter set (WB7514) opened to sterile field. 11:57:10 SHEATH 5FR [place] (WAH360) opened to sterile field. 11:57:11 EMERALD Guide Wire (312-788) opened to sterile field. 11:57:22 A 5 Fr sheath was inserted into the Right Femoral artery 11:57:29 A MULTIPACK JL 4.0 5Fr catheter was advanced over the wire and used for Procedure. 11:58:31 LCA angiography performed. 11:58:41 Catheter removed. 11:58:51 A MULTIPACK 3DRC 5Fr catheter was advanced over the wire and used for Procedure. 11:59:02 Versed 1 mg I.V. was administered by Erasmo Blunt RN; for sedation; Verbal order read back and verified. 11:59:08 Fentanyl 50 mcg I.V. was administered by Erasmo Blunt RN; for sedation; Verbal order read back and verified. 12:00:02 RCA angiography performed. 12:00:05 Catheter removed. 12:00:17 A MULTIPACK Pigtail 5 Fr catheter was advanced over the wire and used for Procedure. 12:00:31 LV gram done using SHANNON 12:00:33 Injector settings: Ml/sec: 10, Volume: 20, 12:01:29 LV hemodynamics recorded. 12:01:39 EF : 55 % 12:01:41 Catheter removed. 12:01:48 EXOSEAL 5Fr (EX500) opened to sterile field. 12:02:19 Sheath removed intact; hemostasis achieved with Exoseal to the Right Femoral artery. 12:02:28 Procedure ended.(Physican Out) 12:02:44 Contrast amount:Isovue 300 55ml. 12:02:49 Fluoroscopy time 01.70 minutes. 12:02:57 Fluoroscopy dose: 167 mGy 12:02:57 Flurop Dose total: 167 12:03:02 Dose Area Product 9800 mGy/cm. 12:03:04 Sharps counted by scrub and verified by R.N. 12:03:07 Post-op/insertion site Right Femoral artery dressed using a 4 x 4 and Tegaderm. 12:03:11 Post-procedure physical assessment completed. ASA score P 2 - A patient with mild systemic disease as per Bola House MD. 12:03:14 Post procedure rhythm: sinus rhythm 12:03:22 Estimated blood loss: 0 ml 12:03:24 Post procedure instruction explained to patient.Patient verbalizes understanding. 12:03:24 Patient needs reinforcement of post procedure teaching. 12:03:49 Procedure and supply charges have been captured, reviewed, submitted and are correct. 12:03:51 Procedure Complication : No complications 12:06:30 Vital chart was stopped 12:06:32 [facility] Findings: mild to moderate CAD (<70%) 12:06:35 Operative report dictated upon procedure completion. 12:06:36 See physician's report for complete and final results. 12:06:38 Report given to [facility]. 12:06:41 Patient transfered to [facility] with Bed. 12:06:43 Procedure ended. 12:06:43 Full Disclosure recording stopped 12:06:48 End room use (Document Last) 12:07:21 End room use (Document Last) 12:07:42 End room use (Document Last) Device Usage Item Name Manufacture Quantity Catalog Hospital Part Current Minimal L ot# / Number Charge Number Stock Stock Serial# Code ACIST Acist 1 76905 406172 340221 735617 20 Syringe Medical (66068) Systems Inc Bag Microtek 1 2001S 292610 71645 979422 5 Decanter Medical Inc. () ACIST Hand Acist 1 48410 517098 265931 878004 5 Control Medical (33890) Systems Inc ACIST Acist 1 77729 600399 663668 912371 5 Manifold Medical (27043) Systems Inc Tegaderm 4 3M 1 1626W 312193 019603 177879 5 x 4 (1626W) Medline Medline 1 [id number] 472469 02161 456677 5 Cath Pack ([id number]) DIAGNOSTIC Cardinal 1 HR4340 774576 56923 895286 30 Multipack Health 5Fr catheter set (XW8981) SHEATH 5FR Terumo 1 CTP169 896634 249914 865071 5 [place] (YLE041) EMERALD Cardinal 1 502-455 545060 016442 969068 5 Guide Wire Health (502-455) MULTIPACK Cardinal 1 698608 5 JL 4.0 5Fr Health catheter MULTIPACK Cardinal 1 343142 5 3DRC 5Fr Health catheter MULTIPACK Cardinal 1 767036 5 Pigtail 5 Health Fr catheter EXOSEAL 5Fr Cardinal 1 EX500 391685 488559 183257 10 (EX500) Health Signature Audit [place] Stage Time Signature Unsigned Intra-Procedure 01/12/2019 Evita Rossi 12:07:22 PM RT(R) Intra-Procedure 01/12/2019 Erasmo Blunt RN 12:07:42 PM Intra-Procedure 01/12/2019 Bola Brown 12:08:14 PM Randy ZAVALA [facility] [address] [id number]
[2019-01-11] MEDS ORDERED: LUTEIN20 MG PO (09:21)
[2019-01-11] MEDS ORDERED: KLONOPIN0.5 MG PO (09:22)
[2019-01-11] MEDS ORDERED: TIGAN300 MG PO (09:23)
[2019-01-11 09:33] LABS: HEMATOCRIT 41.3 % (36.0-48.0); LYMPHOCYTES 24.4 % (15-50); MCH 31.8 pg (26.0-34.0); MCHC 33.9 g/dL (31.0-37.0); MCV 93.9 fL (80.0-100.0); MEAN PLATELET VOLUME 9.7 fL (7.4-10.4); NEUTROPHILS 64.5 % (40-80); PLATELET COUNT 229 10x3/uL (130-400); RDW 13.5 % (11.5-14.5)
[2019-01-11 09:41] LABS: CALC OSMOLALITY 276 mosm/kg (275-300); CALCIUM 9.2 mg/dL (8.5-10.1); CARBON DIOXIDE 29.1 mmol/L (21.0-32.0); CHLORIDE - SERUM 105 mmol/L (98-107); CREATININE - SERUM 0.8 mg/dL (0.6-1.3); GLUCOSE 82 mg/dL (74-106); POTASSIUM - SERUM 4.2 mmol/L (3.5-5.1); SODIUM 139 mmol/L (136-145); UREA NITROGEN 13 mg/dL (7-18); eGFR NON AFRICAN AMERICAN 72 mL/min (90-120)
[2019-01-11 09:43] LABS: INR 0.94 (0.85-1.17); PROTIME 12.1 SECONDS (11.6-15.0)
[2019-01-11 09:55] LABS: ALBUMIN 3.4 g/dL (3.4-5.0); ALKALINE PHOSPHATASE 75 U/L (46-116); ALT (SGPT) 15 U/L (10-68); BILIRUBIN - TOTAL 0.41 mg/dL (0.2-1.3); LIPASE 129 U/L (73-393); PRO BNP 102 pg/mL (0-450); PROTEIN - SERUM 7.2 g/dL (6.4-8.2); THYROID STIMULATING HORMONE 2.58 uIU/mL (0.36-3.74); TROPONIN-I < 0.017 ng/mL (0.000-0.060)
--- NOTE | 2019-01-11 10:18 | NUR ---
RECEIVED REPORT FROM YOLETTE IN ED.
--- NOTE | 2019-01-11 10:29 | NUR ---
PATIENT ARRIVED TO UNIT AT THIS TIME VIA GERMAIN
--- NOTE | 2019-01-11 10:30 | NUR ---
PATIENT ARRIVED TO UNIT VIA GERNEY FROM ED. PATIENT WITH FAMILY AT BEDSIDE AT THIS TIME. PATIENT ALERT/ORIENTED. CALL LIGHT PLACED WITHIN REACH. 20 GAUGE IV SALINE LOCKED. BLANKETS PROVIDED UPON REQUEST. NO DISTRESS.
[2019-01-11] MEDS ORDERED: CBD HEMP OIL SL (10:42)
[2019-01-11] MEDS ORDERED: PRIMSOL50 MG/5 ML PO (11:06)
[2019-01-11 12:00] VITALS: BP 108/49
--- NOTE | 2019-01-11 13:00 | NUR ---
PATIENT AMBULATING AROUND UNIT WITH HER DAUGHTER. NO DISTRESS.
[2019-01-11 13:43] VITALS: BP 121/59; Ht 167.6 cm; Wt 59.9 kg
[2019-01-11 13:59] LABS: CKMB 0.8 U/L (0.0-3.6); CREATINE KINASE 39 UL (21-215); TROPONIN-I < 0.017 ng/mL (0.000-0.060)
--- NOTE | 2019-01-11 14:29 | NUR ---
HAT PLACED ON TOILET FOR URINE SPECIMEN.
[2019-01-11 16:30] VITALS: BP 114/48
[2019-01-11 18:09] LABS: APPEARANCE CLEAR (CLEAR); BILIRUBIN NEGATIVE (NEGATIVE); COLOR STRAW (YELLOW); GLUCOSE NEGATIVE (NEGATIVE); KETONE NEGATIVE (NEGATIVE); NITRITE NEGATIVE (NEGATIVE); PROTEIN NEGATIVE (NEGATIVE); UROBILINOGEN NORMAL (NORMAL)
[2019-01-11 18:24] LABS: CKMB 0.7 U/L (0.0-3.6); CREATINE KINASE 33 UL (21-215)
[2019-01-11 18:25] LABS: TROPONIN-I < 0.017 ng/mL (0.000-0.060)
--- NOTE | 2019-01-11 19:10 | NUR ---
PT CARE ASSUMED. BEDSIDE SHIFT REPORT COMPLETE. A&O X4. RR EVEN AND UNLABORED ON RA. NO S/S OF DISRESS NOTED. DENIES CHEST PAIN AT THIS TIME. NO NEEDS EXPRESSED. FAMILY AT BEDSIDE. SR XR, CALL LIGHT IN REACH. WILL CTM.
[2019-01-11 20:00] VITALS: BP 111/47
[2019-01-12] VITALS: BP 101/40
[2019-01-12 02:03] LABS: CKMB 0.5 U/L (0.0-3.6); CREATINE KINASE 31 UL (21-215)
[2019-01-12 02:04] LABS: TROPONIN-I < 0.017 ng/mL (0.000-0.060)
[2019-01-12 04:00] VITALS: BP 112/48
--- NOTE | 2019-01-12 07:00 | NUR ---
RECIEVE REPORT. ALERT AND ORIENTED X4. DAUGHTER AT BEDSIDE. ASSIST TO SHOWER. LINEN CHANGE COMPLETE. AWAITING TO SEE STRINGER UP SOLDERING MACHINE. DENIES ANY NEEDS AT THIS TIME. CONTINUE PLAN OF CARE AND SAFETY PRECAUTIONS.
[2019-01-12 07:58] VITALS: BP 134/57
[2019-01-12 08:43] LABS: BASOPHILS 0.2 % (0-2); HEMATOCRIT 38.4 % (36.0-48.0); HEMOGLOBIN 12.5 g/dL (12-16); IMMATURE GRANULOCYTES 0.2 % (0-5); LYMPHOCYTES 36.7 % (15-50); MCH 31.8 pg (26.0-34.0); MCHC 32.6 g/dL (31.0-37.0); MCV 97.7 fL (80.0-100.0); MEAN PLATELET VOLUME 10.2 fL (7.4-10.4); NEUTROPHILS 47.9 % (40-80); PLATELET COUNT 240 10x3/uL (130-400); RBC 3.93 10x6/uL (4.00-5.40); RDW 13.7 % (11.5-14.5); WBC 4.7 10x3/uL (4.8-10.8)
[2019-01-12 08:57] LABS: ANION GAP 14.2 mmol/L (8-16); CALCIUM 8.6 mg/dL (8.5-10.1); CARBON DIOXIDE 24.8 mmol/L (21.0-32.0); CHOL - HDL RATIO 3.4 ratio (2.3-4.1); CREATININE - SERUM 0.8 mg/dL (0.6-1.3); LDL-HDL RATIO 2.2 ratio (1.5-3.5)
--- NOTE | 2019-01-12 09:28 | NUR ---
ALERT AND ORIENTED X4. RESTING IN BED. CONSENTS FOR ROUTE SALESPERSON SIGNED ON CHART. DENIES ANY OTHER NEEDS AT THIS TIME. CONTINUE PLAN OF CARE AND SAFETY PRECAUTIONS.
--- NOTE | 2019-01-12 12:19 | NUR ---
ARRIVE BACK TO ROOM VIA BED FROM DIRECTOR MACHINE. SEDATED, AROUSES TO STIMULI. FAMILY AT BEDSIDE. ENCOURAGE TO REMAIN FLAT FOR NEXT 2 HOURS. BP-123/65, HR-62 SINUS RYTHM. RT GROIN DRESSING CLEAN DRY INTACT. FREE FROM HEMATOMA. FREE FROM BLEEDING. PEDAL PULSE +2 BILATERALLY. RESPIRATIONS EVEN AND REGULAR. CONTINUE PLAN OF CARE AND SAFETY PRECAUTIONS.
--- NOTE | 2019-01-12 18:05 | NUR ---
ALERT AND ORIENTED X4. SITTING UP IN CHAIR. DC RT HAND IV TIP INTACT. DISCHARGE INSTRUCTIONS GIVEN VERBALLY AND WRITTEN. DISCHARGE PAPERS SIGNED ON CHART. RT GROIN DRESSING CLEAN DRY INTACT. FREE FROM HEMATOMA. FREE FROM INJURY. ESCORT TO RIDE VIA WHEELCHAIR. REMAINS FREE FROM INJURY.
--- NOTE | 2019-01-13 09:39 | MORECARE ---
CASE MANAGEMENT DISCHARGE SUMMARY PATIENT: TEETEE WILLIAMSON UNIT: [id number] ADM DATE: 01/11/19 AGE: 88 : 31 SEX: F ROOM/BED: D.212 AUTHOR: MOHINDER SALES PHYSICIAN: REFERRING PHYSICIAN: SALIMA CONDON MD DATE OF SERVICE: 01/13/19 Discharge Plan Patient Name: TEETEE WILLIAMSON [facility] [facility] 1930 Planned Disposition: Home Anticipated Discharge Date: 01/12/19 Discharge Date: 01/12/2019 Expected LOS: 1 Initial Reviewer: [email or web address] Initial Review Date: 01/13/2019 Generated: 01/13/19 10:39 am Patient Name: TEETEE WILLIAMSON Page [id number] at 0939 All edits/amendments must be made on the electronic document DICTATION DATE: 01/13/19938 LEAD SLOT TECHNICIAN: BLANCO 01/13/19938 RPT#: [id number] DC DATE:01/12/19 STATUS: DIS IN [facility] [address] [place] [address] END OF REPORT
--- NOTE | 2019-01-13 11:12 | OP ---
PATIENT NAME: TEETEE WILLIAMSON MEDICAL RECORD: [id number] :[birth year] LOCATION:D.M2 D.2122 ADMISSION DATE:01/11/19 SURGEON: JOSLYN MACK MD DATE OF OPERATION: 01/12/2019 PROCEDURE: Left heart catheterization, selective coronary angiography, right femoral artery approach. CATHETERS: A 5-Cuban sheath, 5/4 left and right Adriane, 5/4 pig. The procedure was well tolerated. The patient was returned to morfin, sheath removed. ExoSeal device placed. FINDINGS: Left ventriculography in 30-degree SHANNON view: Normal wall motion, normal systolic function. CORONARY ANATOMY: LEFT MAIN: Left main is free of disease. LAD: Free of diagonal system. CIRCUMFLEX: Free of marginal system. RIGHT CORONARY ARTERY: Previously placed stent is widely patent. No progression of chilkat disease. IMPRESSION: Patent stents, no progression of chilkat disease. LV function remains normal. TRANSINT:[id number] Voice Confirmation ID: [id number] DOCUMENT ID: [id number] JOSLYN MACK MD at 1112 CC: [id number] DICTATION DATE: 01/12/19 1220 PUBLIC RELATIONS OFFICER: 01/12/19 1251 DIS IN 01/12/19 [facility] [address] [place] [address]
--- NOTE | 2019-01-13 11:12 | CN ---
PATIENT NAME:TEETEE WILLIAMSON MEDICAL RECORD: [id number] : [birth year] LOCATION:D. D.2122 ADMIT DATE: 01/11/19 ACCOUNT: [id number] CONSULTING PHYSICIAN: JOSLYN MACK MD REFERRING PHYSICIAN: SALIMA OCNDON MD DATE OF CONSULTATION: 01/12/2019 HISTORY OF PRESENT ILLNESS: An 88-year-old female with a known history of coronary artery disease, status post intervention of the right coronary approximately 2 years ago, has been having progressive chest tightness and pressure, fatigue over the summer months. She has had intermittent urinary tract infection. Presented with rest symptomology consistent with ACS this admission with chest tightness and pressure, occurring at rest, radiating to the jaw. Has had a history of dyslipidemia, although given age and on no medical treatment, we are asked to see her concerning her cardiovascular status. PAST MEDICAL HISTORY: Includes: 1. History of coronary artery disease described above. 2. Dyslipidemia. 3. Recurrent urinary tract infection. ALLERGIES: SULFA. MEDICATIONS: At home include aspirin 81 every day. SOCIAL HISTORY: Nonsmoker. Nondrinker. Easily able to take care of her ADLs. Good family support. REVIEW OF SYSTEMS: The patient reports easy bruising but reports no swollen glands. The patient reports no fever, no night sweats, no significant weight gain, no significant weight loss. No significant exercise tolerance. The patient reports no dry eyes, no irritation, no vision change. Patient reports no difficulty hearing and no ear pain. Patient reports no frequent nose bleeds or nose and sinus problems. Patient reports on arm pain on exertion. No shortness of breath while lying down. No history of heart murmur. Patient reports no cough, no wheezing or coughing up blood. Patient reports no abdominal pain, no vomiting. Normal appetite. No diarrhea and not vomiting blood. No nausea and no constipation. Patient reports no incontinence. No difficulty urinating. No hematuria. No increased frequency. Patient reports no muscle aches. No weakness, no arthralgias, no back pain. No swelling of the extremities. Patient reports no abnormal mole, no jaundice, no rashes. Reports no loss of consciousness. No weakness and no numbness. No seizures, dizziness, or headaches. The patient reports no depression, no sleep disturbance, feeling safe in a relationship and no alcohol abuse. Patient reports on fatigue. Reports no runny nose or sinus pressure. No itching, no hives, and no frequent sneezing. PHYSICAL EXAMINATION: GENERAL: Pleasant female, in no acute distress. VITAL SIGNS: Blood pressure 134/57, pulse 68 and regular. HEENT: Normocephalic, atraumatic. NECK: No bruits noted. HEART: Regular. A II/ systolic ejection murmur. LUNGS: Fairly good air excursion. ABDOMEN: Soft, nontender. CONSULT REPORT [id number] TEETEE WILLIAMSON EXTREMITIES: Pulses well preserved, 2+. There is no edema. NEUROLOGIC: Grossly intact. IMPRESSION: Progressive class IV angina/acute coronary syndrome. We will plan for diagnostic angiography. Intervention based on the above. TRANSINT:[id number] Voice Confirmation ID: [id number] DOCUMENT ID: [id number] JOSLYN MACK MD at 1112 CC: [id number] DICTATION DATE: 01/12/19923 ELECTRICAL AND RADIO MOCK UP MECHANIC: 01/12/19 1001 DIS IN 01/12/19 [address] [place] [address]
== END 2019-01-12 18:08 | disposition home or self-care (01) ==
LOC: D.ER 09:07 → D.M2 10:18 → OBSVTIME 10:18 → D.M2 01-12 18:08
PROVIDERS: Family Medicine; Internal Medicine Interventional Cardiology; ADMIT Internal Medicine Nephrology; ATTEND Internal Medicine Nephrology
DX: I24.9 Acute ischemic heart disease, unspecified (principal); I25.10 Atherosclerotic heart disease of native coronary artery without angina pectoris